=== PATIENT | female | born 1980 | race Caucasian/White ===

== ENCOUNTER 2018-12-05 13:28 | Outpatient (REF) | payer SELFPAY ==
[2018-12-05 14:07] LABS: Absolute Basophil Count 0.04 k/cumm (0.0-0.2); Absolute Eosinophil Count 0.18 k/cumm (0.0-0.7); Absolute Lymphocyte Count 1.31 k/cumm (1.2-3.4); Absolute Monocyte Count 0.69 k/cumm (0.11-0.7); Absolute Neutrophil Count 2.79 k/cumm (1.2-6.7); Basophils % 0.8; Eosinophils % 3.6; HCT 39.5 % (36.0-46.0); HGB 12.7 g/dL (12.0-15.5); Lymphocytes % 26.1; Mean Corp. HGB Concentration 32.2 g/dL (32.0-36.0); Mean Corpuscular Hemoglobin 28.9 pg (27.0-33.0); Mean Corpuscular Volume 89.8 fL (80-95); Mean Platelet Volume 11.3 fL (8.0-11.0); Monocytes % 13.8; Neutrophils % 55.7; Platelet Count 246 x1000/uL (130-400); RBC Distribution Width 14.3 % (11.7-14.6); White Blood Cell Count 5.01 k/cumm (4.4-10.8)
== END 2018-12-05 13:48 ==
LOC: NCHCN 13:28
PROVIDERS: PCP Nurse Practitioner; Visit Provider Nurse Practitioner
DX: Z51.89 Encounter for other specified aftercare (principal); R69 Illness, unspecified
CPT/HCPCS: 85025

== ENCOUNTER 2019-09-19 12:13 | Outpatient (REF) | payer OTHER, MEDICAID, SELFPAY ==
[2019-09-19 21:01] LABS: HCT 38.1 % (36.0-46.0); HGB 12.2 g/dL (12.0-15.5); Mean Corpuscular Hemoglobin 29.8 pg (27.0-33.0); Mean Corpuscular Volume 92.9 fL (80-95); Mean Platelet Volume 10.4 fL (8.0-11.0); Platelet Count 229 x1000/uL (130-400); RBC Distribution Width 13.9 % (11.7-14.6); White Blood Cell Count 4.84 k/cumm (4.4-10.8)
[2019-09-19 21:05] LABS: BUN 8 mg/dL (7-18); CREATININE 0.61 mg/dL (0.55-1.02); Prothrombin Time 9.9 sec (9.3-11.0)
== END 2019-09-19 12:33 ==
LOC: NCHCN 12:13
PROVIDERS: PCP Family Medicine; Visit Provider Family Medicine
DX: S89.92XD Unspecified injury of left lower leg, subsequent encounter (principal); S85.00 Unspecified injury of popliteal artery
CPT/HCPCS: 84520; 85027; 82565; 85610

== ENCOUNTER 2019-12-06 12:23 | Outpatient (REF) | payer OTHER, SELFPAY ==
[2019-12-06 20:52] LABS: Abs Immature Grans 0.01 k/cumm (0.0-0.09); Absolute Basophil Count 0.05 k/cumm (0.0-0.2); Absolute Eosinophil Count 0.17 k/cumm (0.0-0.7); Absolute Lymphocyte Count 1.71 k/cumm (1.2-3.4); Absolute Neutrophil Count 2.24 k/cumm (1.2-6.7); Eosinophils % 3.6; HCT 39.9 % (36.0-46.0); Immature Grans % 0.2 %; Lymphocytes % 35.8; Mean Corp. HGB Concentration 32.6 g/dL (32.0-36.0); Mean Corpuscular Hemoglobin 29.7 pg (27.0-33.0); Mean Corpuscular Volume 91.3 fL (80-95); Mean Platelet Volume 10.4 fL (8.0-11.0); Monocytes % 12.6; Neutrophils % 46.8; Platelet Count 244 x1000/uL (130-400); RBC 4.37 m/cumm (4.00-5.20); RBC Distribution Width 13.3 % (11.7-14.6); White Blood Cell Count 4.78 k/cumm (4.4-10.8)
[2019-12-06 21:34] LABS: ESR 10 mm/hr (0-20)
== END 2019-12-06 12:43 ==
LOC: NCHCN 12:23
PROVIDERS: PCP Family Medicine; Visit Provider Family Medicine
DX: S89.92XD Unspecified injury of left lower leg, subsequent encounter (principal)
CPT/HCPCS: 85652; 85025; 86140

== ENCOUNTER 2020-05-19 07:24 | Outpatient (CLI) | payer MEDICAID, SELFPAY ==
[2020-05-24 01:48] LABS: SARS-CoV-2 RNA Undetected (Undetected); SARS-CoV-2 Specimen Source Nasopharynx
== END 2020-05-19 07:44 ==
PROVIDERS: PCP Family Medicine; Visit Provider Family Medicine
DX: Z11.59 Encounter for screening for other viral diseases (principal)
CPT/HCPCS: U0003

== ENCOUNTER 2020-08-05 16:40 | Outpatient (REF) | payer MEDICAID, SELFPAY ==
--- NOTE | 2020-08-05 15:30 | PAPFT_PTH ---
PATIENT: Nancy Mesa LOC: [facility] U#:[id number] AGE/SX: 40/F ROOM: RE08/05/[address]: Amy Gonzales : 1980 BED: DIS: 08/05/2020 SPEC #: [id number] RECD: 08/05/20 17:30 STATUS: ARIK REQ #: [id number] HAN: 08/05/20 15:[address]: Amy Gonzales DEPT: [facility] Cytology RECD BY: Blanka Hamm ENTERED: 08/05/20 17:30 SP TYPE: PAPFT OTHR DR: Tova Michel Tissues: 1 - CX/ENDOCX FOR PAP SMEARS Procedures: PAP THIN PREP/UVM Screening Comments: [id number] (UNSATISFACTORY FOR EVALUATION)
== END 2020-08-05 17:00 ==
LOC: LBN 16:40
PROVIDERS: PCP Family Medicine; Visit Provider Obstetrics & Gynecology Gynecology
DX: R87.615 Unsatisfactory cytologic smear of cervix (principal)
CPT/HCPCS: 88142

== ENCOUNTER 2020-08-11 00:52 | Outpatient (CLI) | payer MEDICAID, SELFPAY ==
--- NOTE | 2020-08-11 08:00 | DI.US_ITS ---
EXAM: US PELVIS TRANSVAGINAL CLINICAL HISTORY: irreg bleeding,ABNL UTERINE BLEEDING,N93.9 TECHNIQUE: Ultrasound performed using standard protocol. COMPARISON: US Cardiac from 10/26/2017 FINDINGS: Pelvic ultrasound was performed transabdominally and transvaginally. Note is made of an apparent flu id collection which lies adjacent to the uterine fundus and adnexae bilaterally, this contains low le bethany echogenicity consistent with hemorrhage and/or debris. There are bilateral mixed echogenicity ovarian masses with internal characteristics sticks consistent with hemorrhagic cysts, these are avascular, the largest 27 millimeters in diameter in the left ovar y. No solid uterine or ovarian mass identified. The endometrial stripe is about 6 millimeters in thickness and is heterogeneous, there is probable sm all endometrial polyp measuring up to about 8 millimeters in diameter Uterine measurements, 69 x 37 x 54. Limited scanning kidneys is unremarkable. IMPRESSION: Findings consistent with bilateral hemorrhagic ovarian cysts, fluid collection adjacent to the uteri ne fundus and adnexa is highly suggestive of hemorrhage, perhaps from ruptured hemorrhagic ovarian cy st. Please correlate clinically. DATA REPOSITORY:
== END 2020-08-11 01:12 ==
PROVIDERS: PCP Family Medicine; Visit Provider Obstetrics & Gynecology Gynecology
DX: N93.9 Abnormal uterine and vaginal bleeding, unspecified (principal)
CPT/HCPCS: 36415; 76830; 76856; 83001; 84144; 84443

== ENCOUNTER 2020-11-28 21:51 | Emergency (ER) | payer MEDICAID, SELFPAY ==
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
[2020-11-28 21:55] VITALS: BP 98/60; PULSE 84; RESP 18; TEMP 36.4; O2SAT 98
[2020-11-28] MEDS: Clindamycin 150 MG CAP 300 MG PO ×2 (22:13)
== END 2020-11-28 22:12 | disposition home or self-care (01) ==
PROVIDERS: Emergency Provider Emergency Medicine; PCP Family Medicine
DX: M27.62 Post-osseointegration biological failure of dental implant (principal); Y83.1 Surgical operation with implant of artificial internal device as the cause of abnormal reaction of the patient, or of later complication, without mention of misadventure at the time of the procedure
CPT/HCPCS: 99283

== ENCOUNTER 2020-12-01 14:36 | Outpatient (REF) | payer MEDICAID, SELFPAY ==
--- NOTE | 2020-12-01 14:15 | PAPFT_PTH ---
PATIENT: Nancy Mesa LOC: [facility] U#:[id number] AGE/SX: 40/F ROOM: RE12/01/[address]: Amy Gonzales : 1980 BED: DIS: 12/01/2020 SPEC #: [id number] RECD: 12/01/20 18:07 STATUS: WESRonaldo REPradip #: [id number] HAN: 12/01/20 14:[address]: Amy Gonzales DEPT: [facility] Cytology RECD BY: Blanka Hamm ENTERED: 12/01/20 18:07 SP TYPE: PAPFT OTHR DR: Tova Michel Tissues: 1 - CX/ENDOCX FOR PAP SMEARS Procedures: PAP THIN PREP/UVM Screening HPV DNA PROBE Comments: [id number]
== END 2020-12-01 14:56 ==
LOC: LBN 14:36
PROVIDERS: PCP Family Medicine; Visit Provider Obstetrics & Gynecology Gynecology
DX: Z12.4 Encounter for screening for malignant neoplasm of cervix (principal); Z11.51 Encounter for screening for human papillomavirus (HPV)
CPT/HCPCS: 88142; 87624

== ENCOUNTER 2021-07-17 08:58 | Emergency (ER) | payer MEDICAID, SELFPAY ==
[2021-07-17 09:02] VITALS: BP 101/64; PULSE 80; RESP 14; TEMP 36.3; O2SAT 98
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
--- NOTE | 2021-07-17 09:15 | DI.RAD_ITS ---
Exam(s) XR HAND RT COMPLETE EXAM: XR HAND RT COMPLETE CLINICAL HISTORY: lacerations dorsal R hand. TECHNIQUE: 2D digital imaging was performed. COMPARISON: No exams were available for comparison FINDINGS: BONES: No acute fracture is present. No bony destructive lesion is seen. JOINTS: No dislocation present. SOFT TISSUE: Normal. No radiopaque foreign body. IMPRESSION: Unremarkable radiographs of the right hand. DATA REPOSITORY: RADIATION DOSE DELIVERED:
--- NOTE | 2021-07-17 10:51 | DI.VRAD_ITS ---
PROCEDURE INFORMATION: Exam: XR Right Hand Exam date and time: 07/17/2021 9:16 AM Age: 41 years old Clinical indication: Pain; Right; Patient HX: Lacerations dorsal RT hand TECHNIQUE: Imaging protocol: XR Right hand. Views: 3 or more views. COMPARISON: CR RIGHT HAND COMPLETE 12/08/2014 9:49 AM (report not provided) FINDINGS: Bones/joints: No significant bony or articular abnormality is identified. Soft tissues: The soft tissues appear grossly unremarkable. No radiopaque foreign body is identified. IMPRESSION: No significant abnormality. Dictated and Authenticated by: Lucho Perera MD. Ordering:RYAN Franco MD
== END 2021-07-17 10:01 | disposition home or self-care (01) ==
PROVIDERS: Emergency Provider Emergency Medicine; PCP Family Medicine
DX: S61.212A Laceration without foreign body of right middle finger without damage to nail, initial encounter (principal); S61.214A Laceration without foreign body of right ring finger without damage to nail, initial encounter; W22.8XXA Striking against or struck by other objects, initial encounter
CPT/HCPCS: 12002; 99283; 73130

== ENCOUNTER 2021-07-28 15:33 | Emergency (ER) | payer MEDICAID, SELFPAY ==
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
[2021-07-28 15:55] VITALS: BP 104/63; PULSE 75; RESP 18; TEMP 36.7; O2SAT 100
== END 2021-07-28 16:10 | disposition home or self-care (01) ==
PROVIDERS: Emergency Provider Emergency Medicine; PCP Family Medicine
DX: S61.411D Laceration without foreign body of right hand, subsequent encounter (principal); X58.XXXD Exposure to other specified factors, subsequent encounter; Z48.02 Encounter for removal of sutures

== ENCOUNTER 2021-11-12 12:03 | Outpatient (REF) | payer MEDICAID, SELFPAY ==
[2021-11-14 15:34] LABS: COVID-19 RT-PCR UVMMC Result Negative (Negative)
== END 2021-11-12 12:04 | disposition home or self-care (01) ==
LOC: NCHCN 12:03
PROVIDERS: PCP Family Medicine; Visit Provider Family Medicine
DX: Z20.822 Contact with and (suspected) exposure to COVID-19 (principal)
CPT/HCPCS: U0003

== ENCOUNTER 2022-03-03 11:01 | Emergency (ER) | payer MEDICAID, SELFPAY ==
--- NOTE | 2022-03-03 11:00 | RT.EKG_ITS ---
APPROVED REPORT Exam: Resting ECG Reason for Exam: CHEST PAIN Patient Location: E HR:83 bpm ECG Measurements Heart Rate 83 AXIS KS 161 P 73 QRSd 92 QRS 62 QT 405 T 31 QTc 475 Conclusion Sinus rhythm...normal P axis, V-rate 60- 99 ST elev, probable normal early repol pattern...ST elevation, age<55
[2022-03-03 11:09] VITALS: BP 121/63; PULSE 89; RESP 20; TEMP 36.6; O2SAT 100
[2022-03-03 11:14] VITALS: RESP 12
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
[2022-03-03 11:28] LABS: Abs Immature Grans 0.03 10^3/uL (0.0-0.06); Absolute Basophil Count 0.09 10^3/uL (0.0-0.2); Absolute Lymphocyte Count 1.93 10^3/uL (1.2-3.4); Absolute Monocyte Count 0.96 10^3/uL (0.1-0.8); Absolute Neutrophil Count 7.58 10^3/uL (1.2-6.7); Basophils % 0.8; Eosinophils % 0.9; HCT 44.7 % (36.0-46.0); HGB 14.2 g/dL (11.2-15.7); Immature Grans % 0.3; Lymphocytes % 18.1; MCH 28.7 pg (27.0-33.0); MCHC 31.8 % (32.0-36.0); MCV 90 fL (80-95); MPV 10.1 fL (8.0-11.0); Neutrophils % 70.9; Platelet Count 326 10^3/uL (130-400); RBC 4.95 10^6/uL (3.93-5.22); RDW 15.9 % (11.7-14.6); RDW-SD 53.2 fL; WBC 10.69 10^3/uL (4.4-10.8)
[2022-03-03 11:45] LABS: ALT 33 U/L (14-59); AST 21 U/L (15-37); Albumin 4.5 g/dL (3.4-5.0); Alkaline Phosphatase 75 U/L (46-116); Anion Gap 8.2 mmol/L (3-11); BUN 9 mg/dL (7-18); Bilirubin, Total 0.4 mg/dL (0.2-1.0); CO2 28.8 mmol/L (21.0-32.0); CREATININE 0.7 mg/dL (0.55-1.02); Chloride 103 mmol/L (98-107); Glucose 93 mg/dL (74-106); Magnesium 2.1 mg/dL (1.8-2.4); Potassium 3.9 mmol/L (3.5-5.1); Sodium 140 mmol/L (136-145); Total Protein 8.2 g/dL (6.4-8.2); Troponin I < 50 ng/L (<or=60)
[2022-03-03 12:05] LABS: D-Dimer 304 ng/mlFEU (<500)
--- NOTE | 2022-03-03 13:22 | DI.RAD_ITS ---
Exam(s) XR CHEST 2V PA LATERAL EXAM: XR CHEST 2V PA LATERAL CLINICAL HISTORY: chest pain TECHNIQUE: 2D digital imaging was performed. COMPARISON: CR CHEST 2 VIEWS PA,LAT from 08/28/2017 FINDINGS: The heart is not enlarged. The lungs are clear and well expanded. No pleural effusion seen. Mediastin al contours appear intact. IMPRESSION: Normal chest. RADIATION DOSE DELIVERED: Total DLP
[2022-03-03 13:24] VITALS: BP 104/52; PULSE 70; RESP 13; TEMP 36.5; O2SAT 100
[2022-03-03 14:41] LABS: Troponin I < 50 ng/L (<or=60)
[2022-03-03 14:44] VITALS: BP 113/71; PULSE 65; RESP 15; TEMP 36.4; O2SAT 100
== END 2022-03-03 15:25 | disposition home or self-care (01) ==
PROVIDERS: Emergency Provider Nurse Practitioner Family; PCP Family Medicine
DX: K21.9 Gastro-esophageal reflux disease without esophagitis (principal)
CPT/HCPCS: 36415; 80053; 93005; 99284; 71046; 83735; 84484; 85025; 85379; 93010; 99283

== ENCOUNTER 2022-03-14 18:06 | Outpatient (REF) | payer MEDICAID, SELFPAY ==
[2022-03-16 14:21] LABS: COVID-19 RT-PCR UVMMC Result Negative (Negative)
== END 2022-03-14 18:07 | disposition home or self-care (01) ==
LOC: NCHCN 18:06
PROVIDERS: PCP Family Medicine; Visit Provider Family Medicine
DX: Z20.822 Contact with and (suspected) exposure to COVID-19 (principal); Z01.818 Encounter for other preprocedural examination
CPT/HCPCS: U0003

== ENCOUNTER 2022-08-31 03:22 | Outpatient (CLI) | payer MEDICAID, SELFPAY ==
[2022-08-31 18:19] LABS: FSH 138.8 mIU/mL (See Note)
== END 2022-08-31 03:23 | disposition home or self-care (01) ==
LOC: LBO 03:22
PROVIDERS: PCP Family Medicine; Visit Provider Obstetrics & Gynecology Gynecology
DX: N91.5 Oligomenorrhea, unspecified (principal); E28.39 Other primary ovarian failure
CPT/HCPCS: 36415; 83001

== ENCOUNTER 2022-09-10 07:07 | Emergency (ER) | payer MEDICAID, SELFPAY ==
[2022-09-10 06:56] VITALS: BP 116/83; PULSE 105; RESP 18; TEMP 36.4; O2SAT 97
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
== END 2022-09-10 07:47 | disposition home or self-care (01) ==
LOC: ER 07:54
PROVIDERS: Emergency Provider Emergency Medicine; PCP Family Medicine
DX: S51.812A Laceration without foreign body of left forearm, initial encounter (principal); X78.1XXA Intentional self-harm by knife, initial encounter
CPT/HCPCS: 12002

== ENCOUNTER 2022-09-22 08:35 | Emergency (ER) | payer MEDICAID, SELFPAY ==
[2022-09-22 08:52] VITALS: BP 119/65; PULSE 83; RESP 14; TEMP 36.9; O2SAT 97
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
== END 2022-09-22 09:01 | disposition home or self-care (01) ==
PROVIDERS: Emergency Provider Physician Assistant; PCP Family Medicine
DX: S51.812D Laceration without foreign body of left forearm, subsequent encounter (principal); X78.8XXD Intentional self-harm by other sharp object, subsequent encounter; Z48.02 Encounter for removal of sutures; Z91.52 Personal history of nonsuicidal self-harm

== ENCOUNTER 2023-02-10 00:31 | Outpatient (CLI) | payer OTHER, SELFPAY ==
--- NOTE | 2023-02-10 | DI.RAD_ITS ---
Exam(s) XR TIB/FIB LT XR ANKLE LT COMPLETE EXAM: XR ANKLE LT COMPLETE and XR tib/fib LT CLINICAL HISTORY: LT ANKLE PAIN, M25.572, NEW TRAUMA TECHNIQUE: 2D digital imaging was performed of the left tib/fib and ankle. Five images were obtaine d. AP, lateral and oblique views were obtained. COMPARISON: CR XR TIB/FIB LT from 02/10/2023 FINDINGS: BONES: No acute fracture is present. No bony destructive lesion is seen. There are old fracture defor mities involving the proximal tibia and fibula. Orthopedic side plate and screws are seen in the pro ximal tibia. JOINTS:The ankle mortise is normally aligned. SOFT TISSUE: There is a surgical clip in the soft tissues in the lower leg. IMPRESSION: No acute fracture or dislocation. DATA REPOSITORY: RADIATION DOSE DELIVERED:
== END 2023-02-10 00:51 ==
PROVIDERS: PCP Family Medicine; Visit Provider Internal Medicine
DX: M25.572 Pain in left ankle and joints of left foot (principal); M79.605 Pain in left leg
CPT/HCPCS: 73590; 73610